=== PATIENT | female | born 1985 | race Caucasian/White ===

== ENCOUNTER 2021-01-14 22:34 | Emergency (ER) | payer BC ==
[2021-01-14 22:43] VITALS: BP 138/87
--- NOTE | 2021-01-14 23:03 | ED Physician Documentation ---
PD HPI HEENT - Stated complaint Stated Complaint: TOOTH/THROAT PX - Chief complaint Chief Complaint: General - History obtained from History obtained from: Patient - History of Present Illness Timing - onset: Yesterday Timing - details: Gradual onset Pain level now: 6 Location: Right ear, Throat, Tooth Associated symptoms: No: Fever, Cough - Additional information Additional information: since yesterday, right neck pain, sore throat, right ear pain. she also c/o right lower tooth pain which she feels is the source/origin of the other symptoms. Denies fever. Review of Systems Constitutional: denies: Fever Ears: reports: Ear pain Throat: reports: Dental pain / toothache, Sore throat Musculoskeletal: reports: Neck pain PD PAST MEDICAL HISTORY - Past Medical History Past Medical History: No - Present Medications Home Medications: Ambulatory Orders Medication Instructions Recorded Confirmed Amox/Clav 875/125 [Augmentin 1 tablet PO Q12H 5 Days #10 tablet 01/14/21 875/125 Tab] HYDROcod/ACETAM 5/325 [Brewster 5/325] 1 - 2 tablet PO Q6H PRN #14 tablet 01/14/21 - Allergies Allergies/Adverse Reactions: Allergies Allergy/AdvReac Type Severity Reaction Status Date / Time hydromorphone [From Dilaudid] AdvReac Unknown Verified 01/14/21 22:44 PD ED PE NORMAL - Vitals Vital signs reviewed: Yes - General General: Alert and oriented X 3, No acute distress, Well developed/nourished - HEENT HEENT: Ears normal, Moist mucous membranes, Pharynx benign, Dentition benign - Neck Neck: Supple, no meningeal sign, No adenopathy PD ED PE EXPANDED - HEENT HEENT Visual: 1 - tenderness (crown; mild TTP with trace erythema of adjacent gingiva on buccal aspect) Results - Vitals Vitals: Oxygen O2 Source Room air - Labs Labs: Microbiology 01/14/21 22:20 Group A Strep Throat Culture - Preliminary Throat CULTURE IN PROGRESS. RESULTS TO FOLLOW. Laboratory Tests 01/14/21 22:20 Group A Strep Rapid Negative PD MEDICAL DECISION MAKING - ED course Complexity details: reviewed results, re-evaluated patient, considered differential, d/w patient ED course: Rapid strep negative. Initially, she was mostly describing ear, throat, and neck discomfort. After strep test resulted negative, (and given PO decadron), she then was emphasizing the right-sided toothache she has been having. She says this preceded all of the other symptoms and she feels this is the etiology of the other symptoms. She is further concerned because the tooth that hurts is a crown. There is trace gingival erythema adjacent (buccal aspect) to the painful tooth as above. Will cover possible infection with antibiotic, and opioid analgesia provided. I am prescribing a short course of short-acting opioid pain medication for this patient. I have reviewed the patients [employer] and no concerning findings were noted. I have discussed that the opioids are for short term therapy only, and will not be refilled from the ED. Departure - Departure Disposition: Home, Self Care Clinical Impression: Pain, dental Condition: Good Instructions: ED Tooth Pain Prescriptions: Amox/Clav 875/125 [Augmentin 875/125 Tab] 1 tablet PO Q12H 5 Days #10 tablet HYDROcod/ACETAM 5/325 [Brewster 5/325] 1 - 2 tablet PO Q6H PRN #14 tablet PRN Reason: Pain Comments: Follow up with either your primary care provider or dentist, next available appointment. Prescriptions for antibiotic (augmentin) and opioid pain medication (hydrocodone/acetaminophen) have been electronically submitted to [facility] pharmacy in [place] I am prescribing a short course of narcotic pain medication for you. These are potentially dangerous and addictive medications that should be used carefully. These medications may constipate you. Take an [id number] stool softener (docusate) twice daily with plenty of water while taking these medications. If you go 24 hours without a bowel movement, take [id number] miralax, per package instructions. Do not drink or drive while taking these medications. If you received narcotic or sedating medications while in the emergency department, do not drive for 24 hours. Store this medication in a safe, secure place and out of reach of children. It is a violation of federal law to give or sell this medication to another person or to use in a manner other than prescribed. The ED will not refill narcotic prescriptions, including prescriptions lost or stolen. To dispose of unwanted medications: 1. [facility] at [address] in [place] has a medication drop box. They accept prescription medications (in pill form) Sunday through Sunday 9:00 a.m. to 5:00 p.m. 2. The [facility] accepts prescription medications (in pill form only) for disposal year round. Call for more information. 3. Contact the [facility] for the next [facility] sponsored prescription drug collection event. , [phone], or [phone]; Discharge Date/Time: 01/15/21 00:17
[2021-01-14] MEDS ORDERED: CHERRY SYRUP 10 ML UDC PO ONE (23:18)
[2021-01-14] MEDS ORDERED: DEXAMETHASONE 10 MG/ML VIAL PO STA (23:18)
[2021-01-14 23:31] LABS: RAPID STREP SCREEN Negative (Negative)
[2021-01-14] MEDS ORDERED: HYDROcod/ACET 5/325 Prepack 4 PO STA (23:51)
[2021-01-14] MEDS ORDERED: AMOX/CLAV 875 MG/125 MG TABLET PO STA (23:52)
== END 2021-01-15 00:17 | disposition home or self-care (01) ==
LOC: ED 22:34
DX: K08.89 Other specified disorders of teeth and supporting structures (principal)
CPT/HCPCS: 87070; 87430; 99283; A9270